=== PATIENT | female | born 1955 | race Caucasian/White ===

== ENCOUNTER 2018-07-11 09:45 | Emergency (ER) | payer OTHER ==
[~2018-07-11] VITALS: Ht 149.9 cm; Wt 54.0 kg
[~2018-07-11 09:45] MED LIST: ASCO1CAP2 PO; GABA300C16 PO; LEVO25TA6 PO; LORA10TA3 PO; LOSA25TA12 PO; METF-849 PO; PANT40TA3 PO; VALS80TA2 PO; [UNRECOGNIZED DRUG - CODE] PO
[2018-07-11 09:46] VITALS: BP 156/73; PULSE 75; RESP 19; Ht 149.9 cm; Wt 54.0 kg
[2018-07-11] MEDS ORDERED: LIDOCAINE 1% (MPF) 5 ML VIAL INJ ONE (11:00)
[2018-07-11] MEDS ORDERED: CEPH-443 PO (11:54)
[2018-07-11] MEDS ORDERED: IBUP-1542 PO (11:54)
--- NOTE | 2018-07-11 16:44 | ERD ---
ER Documentation Chief Complaint Chief Complaint HAND LACERATION HPI 62-year-old female patient with a past medical history of diabetes, hypertension, hyperlipidemia, asthma presents to the ED with a left hand laceration to her index finger that occurred after pressing down the trash in the trash can, actually getting caught by a broken ceramic bowl. States that she is up-to-date with her tetanus vaccine, in 2016. Rates her pain a 5 out of 10. Denies any increased redness, swelling, concerns for any foreign bodies, fever, chills. Patient reports good range of motion. States that she is right- handed. ROS All systems reviewed and are negative except as per history of present illness. Medications Home Meds Active Scripts Cephalexin* (Keflex*) 500 Mg Capsule, 500 MG PO QID for 7 Days, CAP Prov:CHON COOK PA-C 07/11/18 Ibuprofen* (Motrin*) 600 Mg Tab, 600 MG PO Q6, #20 TAB Prov:CHON COOK PA-C 07/11/18 Pantoprazole* (Protonix*) 40 Mg Tablet.dr, 40 MG PO DAILY, #30 TAB Prov:MARGA BROWN MD 10/12/13 Reported Medications Losartan Potassium* (Losartan Potassium*) 25 Mg Tablet, 25 MG PO DAILY, TAB 06/14/15 Metformin* (Glucophage*) 500 Mg Tab, 250 MG PO HS, TAB 10/09/13 Valsartan* (Diovan*) 80 Mg Tablet, 80 MG PO DAILY, TAB 10/09/13 Loratadine* (Loratadine*) 10 Mg Tablet, 10 MG PO DAILY, TAB 10/09/13 Levothyroxine Sodium* (Levothyroxine Sodium*) 25 Mcg Tablet, 25 MCG PO AC BREAKFAST, TAB 10/09/13 Gabapentin* (Gabapentin*) 300 Mg Capsule, 300 MG PO TID, CAP 10/09/13 Calcium Carb & Cit-Vitamin D3 (Calcium + Vitamin D3 Caplet) 1 Each Tablet.er, 1 TAB PO DAILY, TAB 10/09/13 Ascorbic Acid/Collagen Hydr (Collagen Plus Vit C Capsule) 1 Cap Capsule, 1 CAP PO DAILY 10/09/13 Allergies Allergies: Coded Allergies: No Known Allergy (Unverified , 10/08/13) PMhx/Soc History of Surgery: Yes (c-sections x2) Anesthesia Reaction: No Hx Neurological Disorder: No Hx Respiratory Disorders: No Hx Cardiac Disorders: Yes (HTN) Hx Psychiatric Problems: No Hx Miscellaneous Medical Probl: Yes (DM, HYPOTHYROIDISM) Hx Alcohol Use: No Hx Substance Use: No Hx Tobacco Use: Yes Smoking Status: Former smoker FmHx Family History: No diabetes, No coronary disease Physical Exam Vitals Vital Signs Date Temp Pulse Resp B/P (MAP) Pulse Ox O2 O2 Flow FiO2 Time Delivery Rate 07/11/18 98.3 75 19 156/73 96 09:46 (100) Physical Exam Const: [id number], well-nourished. In no acute distress. Head: Atraumatic, normocephalic Eyes: Normal Conjunctiva without injection ENT: Normal external ear, nose and mouth. Neck: Full range of motion. No meningismus. Resp: Clear to auscultation bilaterally. No wheezing, rhonchi, rales, or crackles. No accessory muscle use. No retractions. Cardio: Regular rate and rhythm, no murmurs Skin: No petechiae or rashes Back: No midline tenderness. No CVA tenderness. Ext: No cyanosis, or edema. Cap refill less than 2 seconds. Distal pulses intact bilaterally. 4 cm laceration on the volar aspect of patient's left index finger at the MCP joint. Full range of motion of the DIP, PIP, MCP joints bilaterally. Neur: Awake and alert. Normal gait and coordination. Muscle strength 5/5. Sensation intact bilaterally. Psych: Normal Mood and Affect Results 24 hrs Current Medications Medications Dose Sig/Yobany Start Time Status Last (Trade) Ordered Route PRN Stop Time Admin Dose Reason Admin Lidocaine 5 ml ONCE ONCE 07/11/18 DC (Xylocaine INJ 11:00 1% (Mpf)) 07/11/18 11:01 Procedures/MDM 62-year-old male patient with a past medical history of diabetes, hypertension, hyperlipidemia, asthma presents to the ED complaining of a left hand laceration. Patient is afebrile and nontoxic-appearing. Patient gave consent to perform laceration repair. Laceration Repair by me: Anesthesia: 5cc 1% lidocaine locally Location: [Volar aspect of left index finger] Tendon/Joint/Nerves: No injury Foreign body: None detected after copious irrigation and exploration Technique: 7 5-0 Ethilon Simple Interrupted Sutures Complexity: No subcutaneous sutures/mucosal repair/edge excision Post Closure Length: [4] cm Patient's bleeding was easily controlled in the department and there is no indication of anemia. No indication for x-rays, no visualization of any foreign bodies and no broken pieces of the ceramic complained by patient. Patient has full range of motion of the DIP, PIP, MCP joints bilaterally. Tendon is intact. Patient was dealing with trash, patient will be given prescription for Keflex for infection prophylaxis. Patient is neurovascularly intact. No evidence of compartment syndrome, neurologic injury, vascular injury, open joint, tendon laceration, or foreign body. Patient is appropriate for outpatient follow up. 48 hour wound check. Scar minimization instructions given. Instructed patient to return for suture removal in 7-10 days. Keflex was prescribed to patient for infection prevention. Instructed patient to return to the ED sooner for any worsening symptoms. Follow up with primary care physician in 1-2 days. Patient's questions were answered. Patient understood and agreed with discharge plan. Departure Diagnosis: Primary Impression: Finger laceration Encounter type: initial encounter Finger: index finger Damage to nail status: without damage Foreign body presence: without foreign body Laterality: left Qualified Codes: S61.211A - Laceration without foreign body of left index finger without damage to nail, initial encounter Condition: Stable Patient Instructions: Laceration, Hand [facility]errals: [facility] YOU HAVE RECEIVED A MEDICAL SCREENING EXAM AND THE RESULTS INDICATE THAT YOU DO NOT HAVE A CONDITION THAT REQUIRES URGENT TREATMENT IN THE EMERGENCY DEPARTMENT. FURTHER EVALUATION AND TREATMENT OF YOUR CONDITION CAN WAIT UNTIL YOU ARE SEEN IN YOUR DOCTORS OFFICE WITHIN THE NEXT 1-2 DAYS. IT IS YOUR RESPONSIBILITY TO MAKE AN APPOINTMENT FOR FOLOW-UP CARE. IF YOU HAVE A PRIMARY DOCTOR --you should call your primary doctor and schedule an appointment IF YOU DO NOT HAVE A PRIMARY DOCTOR YOU CAN CALL OUR PHYSICIAN REFERRAL HOTLINE AT IF YOU CAN NOT AFFORD TO SEE A PHYSICIAN YOU CAN CHOSE FROM THE FOLLOWING [facility] [address] [facility] [address] [facility] [address] [facility] [address] [facility] [facility] [address] [facility]. [facility] [address] [facility]. [facility] YOU HAVE RECEIVED A MEDICAL SCREENING EXAM AND THE RESULTS INDICATE THAT YOU DO NOT HAVE A CONDITION THAT REQUIRES URGENT TREATMENT IN THE EMERGENCY DEPARTMENT. FURTHER EVALUATION AND TREATMENT OF YOUR CONDITION CAN WAIT UNTIL YOU ARE SEEN IN YOUR DOCTORS OFFICE WITHIN THE NEXT 1-2 DAYS. IT IS YOUR RESPONSIBILITY TO MAKE AN APPOINTMENT FOR FOLOW-UP CARE. IF YOU HAVE A PRIMARY DOCTOR --you should call your primary doctor and schedule and appointment IF YOU DO NOT HAVE A PRIMARY DOCTOR YOU CAN CALL OUR PHYSICIAN REFERRAL HOTLINE AT . IF YOU CAN NOT AFFORD TO SEE A PHYSICIAN YOU CAN CHOSE FROM THE FOLLOWING PENDING SALE TO [facility]: [facility] [address] [place] [address] [facility] [address] [place], [place] [id number] [place] [address] [address] [place] [address] [facility] Additional Instructions: Call your primary care doctor TOMORROW for an appointment during the next 2-3 days.See the doctor sooner or return here if your condition worsens before your appointment time. Follow up in 2 days in your clinic for wound check. Follow up with your physician to remove the stitches:For Face wounds 5-7 days.For Elsewhere on the body 7-10 days. CHON COOK PA-C July 11, 2018 16:44
== END 2018-07-11 12:05 | disposition home or self-care (01) ==
LOC: FTE 09:45
DX: S61.211A Laceration without foreign body of left index finger without damage to nail, initial encounter (principal); I10 Essential (primary) hypertension; E11.9 Type 2 diabetes mellitus without complications; E03.9 Hypothyroidism, unspecified; J45.909 Unspecified asthma, uncomplicated; W26.8XXA Contact with other sharp object(s), not elsewhere classified, initial encounter; Y92.9 Unspecified place or not applicable; Z79.84 Long term (current) use of oral hypoglycemic drugs; Z87.891 Personal history of nicotine dependence
CPT/HCPCS: 12002; Z7502; Z7610

== ENCOUNTER 2018-07-15 08:26 | Emergency (ER) | payer OTHER ==
[~2018-07-15] VITALS: Wt 58.0 kg
[~2018-07-15 08:26] MED LIST changes: +CEPH-443 PO; +IBUP-1542 PO
[2018-07-15 08:30] VITALS: BP 150/72; PULSE 62; RESP 16
--- NOTE | 2018-07-15 14:17 | ERD ---
ER Documentation Chief Complaint Chief Complaint here for 2 day wound check on left index finger. HPI 62-year-old female presenting for wound check of the left index finger. Patient fell 2 days ago sutures placed. Patient has a history of diabetes. She is taking prophylactic antibiotics. NKDA. Surgical history denies. Social history denies ROS All systems reviewed and are negative except as per history of present illness. Medications Home Meds Active Scripts Cephalexin* (Keflex*) 500 Mg Capsule, 500 MG PO QID for 7 Days, CAP Prov:CHON COOK PA-C 07/11/18 Ibuprofen* (Motrin*) 600 Mg Tab, 600 MG PO Q6, #20 TAB Prov:CHON COOK PA-C 07/11/18 Pantoprazole* (Protonix*) 40 Mg Tablet.dr, 40 MG PO DAILY, #30 TAB Prov:MARGA BROWN MD 10/12/13 Reported Medications Losartan Potassium* (Losartan Potassium*) 25 Mg Tablet, 25 MG PO DAILY, TAB 06/14/15 Metformin* (Glucophage*) 500 Mg Tab, 250 MG PO HS, TAB 10/09/13 Valsartan* (Diovan*) 80 Mg Tablet, 80 MG PO DAILY, TAB 10/09/13 Loratadine* (Loratadine*) 10 Mg Tablet, 10 MG PO DAILY, TAB 10/09/13 Levothyroxine Sodium* (Levothyroxine Sodium*) 25 Mcg Tablet, 25 MCG PO AC BREAKFAST, TAB 10/09/13 Gabapentin* (Gabapentin*) 300 Mg Capsule, 300 MG PO TID, CAP 10/09/13 Calcium Carb & Cit-Vitamin D3 (Calcium + Vitamin D3 Caplet) 1 Each Tablet.er, 1 TAB PO DAILY, TAB 10/09/13 Ascorbic Acid/Collagen Hydr (Collagen Plus Vit C Capsule) 1 Cap Capsule, 1 CAP PO DAILY 10/09/13 Allergies Allergies: Coded Allergies: No Known Allergy (Unverified , 10/08/13) PMhx/Soc History of Surgery: Yes (c-sections x2) Anesthesia Reaction: No Hx Neurological Disorder: No Hx Respiratory Disorders: Yes (Asthma) Hx Cardiac Disorders: Yes (HTN) Hx Psychiatric Problems: No Hx Miscellaneous Medical Probl: Yes ( HYPOTHYROIDISM, Arthritis,Hyperlipidemia) Hx Alcohol Use: No Hx Substance Use: No Hx Tobacco Use: Yes Smoking Status: Never smoker FmHx Family History: No diabetes, No coronary disease, No other Physical Exam Vitals Vital Signs Date Temp Pulse Resp B/P (MAP) Pulse Ox O2 O2 Flow FiO2 Time Delivery Rate 07/15/18 97.0 62 16 150/72 98 08:30 (98) Physical Exam GENERAL: The patient is well-appearing, well-nourished, in no acute distress CHEST: Clear to auscultation bilaterally. There are no rales, wheezes or rhonchi. HEART: Regular rate and rhythm. No murmurs, clicks, rubs or gallops. SKIN: Sutures intact with no surrounding erythema or dehiscence of the wound. EXTREMITIES: Normal flexion and extension and movement of the digit. Able to isolate at the DIP and PIP joint. Procedures/MDM MDM: 62 yr old female present for wound check. I have low suspicion for skin infection. I have low suspicion for tendon or ligament injury. I have low suspicion for neuro deficit. Patient will return in 5 days to have sutures removed. Strict ER precautions. All questions answered at discharge Departure Diagnosis: Primary Impression: Encounter for wound re-check Condition: Stable Patient Instructions: Wound Check, Lac F/U (No Infection) Referrals: [facility] YOU HAVE RECEIVED A MEDICAL SCREENING EXAM AND THE RESULTS INDICATE THAT YOU DO NOT HAVE A CONDITION THAT REQUIRES URGENT TREATMENT IN THE EMERGENCY DEPARTMENT. FURTHER EVALUATION AND TREATMENT OF YOUR CONDITION CAN WAIT UNTIL YOU ARE SEEN IN YOUR DOCTORS OFFICE WITHIN THE NEXT 1-2 DAYS. IT IS YOUR RESPONSIBILITY TO MAKE AN APPOINTMENT FOR FOLOW-UP CARE. IF YOU HAVE A PRIMARY DOCTOR --you should call your primary doctor and schedule an appointment IF YOU DO NOT HAVE A PRIMARY DOCTOR YOU CAN CALL OUR PHYSICIAN REFERRAL HOTLINE AT IF YOU CAN NOT AFFORD TO SEE A PHYSICIAN YOU CAN CHOSE FROM THE FOLLOWING [facility]ICS [facility] [address] [facility] [address] [facility] [address] [facility] [address] [facility] [address] [place] [address]. [facility]. [address] Additional Instructions: FOLLOW UP WITH YOUR PRIMARY CARE PHYSICIAN TOMORROW.Return to this facility if you are not improving as expected. ETTA ESCOTO PA-C Jul 15, 2018 14:17
== END 2018-07-15 09:42 | disposition home or self-care (01) ==
LOC: FTE 08:26
DX: Z48.01 Encounter for change or removal of surgical wound dressing (principal); I10 Essential (primary) hypertension; J45.909 Unspecified asthma, uncomplicated; E03.9 Hypothyroidism, unspecified; Z87.891 Personal history of nicotine dependence; Z79.84 Long term (current) use of oral hypoglycemic drugs
CPT/HCPCS: 99282